=== PATIENT | female | born 1975 | race Caucasian/White ===

== ENCOUNTER 2016-06-16 11:29 | Emergency (ER) | payer BC, OTHER ==
[~2016-06-16] VITALS: Ht 149.9 cm; Wt 58.0 kg
[~2016-06-16 11:29] MED LIST: IBUP-103 PO; MULTTAB58 PO; TRIA1SPR4 NAE; VNCAQN NAE
[2016-06-16 11:33] VITALS: TEMP 36.5; Ht 149.9 cm; Wt 58.0 kg
[2016-06-16] MEDS ORDERED: DIAZ2TAB PO (11:45)
[2016-06-16] MEDS ORDERED: BECL1AER5 NAE (11:45)
[2016-06-16] MEDS ORDERED: ACET-1222 PO (11:45)
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
[2016-06-16 13:11] VITALS: BP 132/99; PULSE 80; O2SAT 98
== END 2016-06-16 13:15 | disposition home or self-care (01) ==
LOC: C.EDB 11:30 → C.EDC 13:15
DX: R82.99 Other abnormal findings in urine (principal); F17.200 Nicotine dependence, unspecified, uncomplicated

== ENCOUNTER → 2016-07-06 | Outpatient (CLI) | payer BC ==
[~2016-07-06] MED LIST changes: +ACET-1222 PO; +BECL1AER5 NAE; +DIAZ2TAB PO; -MULTTAB58 PO; -TRIA1SPR4 NAE; -VNCAQN NAE
[2016-07-06 11:43] LABS: THYROID STIMULATING HORMONE 0.162 uIu/ml (0.300-4.500)
== END | disposition home or self-care (01) ==
LOC: C.LAB1850 09:38
PROVIDERS: ATTEND Internal Medicine Endocrinology, Diabetes & Metabolism
DX: E05.00 Thyrotoxicosis with diffuse goiter without thyrotoxic crisis or storm (principal)

== ENCOUNTER → 2016-07-27 | Outpatient (CLI) | payer BC ==
[2016-07-27 12:12] LABS: THYROID STIMULATING HORMONE 0.327 uIu/ml (0.300-4.500)
== END | disposition home or self-care (01) ==
LOC: C.LAB1850 10:48
PROVIDERS: ATTEND Internal Medicine Endocrinology, Diabetes & Metabolism
DX: E05.00 Thyrotoxicosis with diffuse goiter without thyrotoxic crisis or storm (principal); E04.2 Nontoxic multinodular goiter

== ENCOUNTER → 2016-08-20 | Outpatient (CLI) | payer BC ==
[2016-08-20 15:15] LABS: THYROID STIMULATING HORMONE 0.355 uIu/ml (0.300-4.500)
== END | disposition home or self-care (01) ==
LOC: C.LAB1850 13:51
PROVIDERS: ATTEND Internal Medicine Endocrinology, Diabetes & Metabolism
DX: E05.90 Thyrotoxicosis, unspecified without thyrotoxic crisis or storm (principal)

== ENCOUNTER → 2016-09-04 | Outpatient (CLI) | payer BC ==
[2016-09-04 13:06] LABS: THYROID STIMULATING HORMONE 0.434 uIu/ml (0.300-4.500)
== END | disposition home or self-care (01) ==
LOC: C.LAB1850 10:19
PROVIDERS: ATTEND Internal Medicine Endocrinology, Diabetes & Metabolism
DX: E05.90 Thyrotoxicosis, unspecified without thyrotoxic crisis or storm (principal)

== ENCOUNTER → 2016-09-18 | Outpatient (CLI) | payer BC ==
[2016-09-18 18:10] LABS: THYROID STIMULATING HORMONE 0.668 uIu/ml (0.300-4.500)
== END | disposition home or self-care (01) ==
LOC: C.LAB1850 16:37
PROVIDERS: ATTEND Internal Medicine Endocrinology, Diabetes & Metabolism
DX: E05.90 Thyrotoxicosis, unspecified without thyrotoxic crisis or storm (principal)

== ENCOUNTER → 2016-10-29 | Outpatient (CLI) | payer BC ==
[2016-10-29 16:20] LABS: THYROID STIMULATING HORMONE 0.577 uIu/ml (0.300-4.500)
== END | disposition home or self-care (01) ==
LOC: C.LAB1850 14:41
PROVIDERS: ATTEND Internal Medicine Endocrinology, Diabetes & Metabolism
DX: E05.90 Thyrotoxicosis, unspecified without thyrotoxic crisis or storm (principal)

== ENCOUNTER → 2017-04-19 | Outpatient (CLI) | payer BC ==
[2017-04-19 15:13] LABS: THYROID STIMULATING HORMONE 0.699 uIu/ml (0.300-4.500)
== END | disposition home or self-care (01) ==
LOC: C.LAB1850 12:54
PROVIDERS: ATTEND Internal Medicine Endocrinology, Diabetes & Metabolism
DX: E05.90 Thyrotoxicosis, unspecified without thyrotoxic crisis or storm (principal)

== ENCOUNTER → 2017-07-09 | Outpatient (CLI) | payer BC | END | disposition home or self-care (01) | LOC: C.LAB1850 15:50 | PROVIDERS: ATTEND Internal Medicine Endocrinology, Diabetes & Metabolism | DX: E05.90 Thyrotoxicosis, unspecified without thyrotoxic crisis or storm (principal) ==

== ENCOUNTER → 2017-07-16 | Outpatient (CLI) | payer BC ==
--- NOTE | 2017-07-16 12:08 | DIAGNOSTIC IMAGING REPORT ---
Thyroid ultrasonography CLINICAL HISTORY: E05.00,E04.2 multinodular thyroid gland COMPARISON STUDY: June 05, 2013 FINDINGS: The right lobe measures 5.4 x 1.8 x 1.3 cm. There is a wider than tall circumscribed mildly hypoechoic upper pole nodule measuring 4 x 4 x 2 mm. There is a mixed echogenicity circumscribed lower pole nodule measuring 6 x 6 x 5 mm. The left lobe measures 5.0 x 1.5 x 1.7 cm. There is a mixed echogenicity lower pole nodule measuring 15 x 9 x 8 mm. This contains echogenic foci, likely representing colloid artifact. IMPRESSION: Multinodular thyroid gland, similar to the preceding study Electronically signed by: Fabián Tejada M.D. 07/16/2017 12:07 PM Dictated Date/Time: 07/16/2017 12:05 PM
== END | disposition home or self-care (01) ==
LOC: C.ULTR 11:36
PROVIDERS: ATTEND Internal Medicine Endocrinology, Diabetes & Metabolism
DX: E05.00 Thyrotoxicosis with diffuse goiter without thyrotoxic crisis or storm (principal); E04.2 Nontoxic multinodular goiter

== ENCOUNTER → 2017-07-21 | Outpatient (CLI) | payer BC | END | disposition home or self-care (01) | LOC: C.PAPS 13:34 | PROVIDERS: ATTEND Family Medicine | DX: Z01.419 Encounter for gynecological examination (general) (routine) without abnormal findings (principal) ==